=== PATIENT | male | born 1945 | race Caucasian/White ===

== ENCOUNTER 2023-08-01 09:29 | Emergency (ER) | payer MEDICARE, OTHER, SELFPAY ==
[2023-08-01 09:35] VITALS: BP 136/77; PULSE 96; RESP 20; TEMP 36.6; O2SAT 97
--- NOTE | 2023-08-01 09:45 | RT.EKG_ITS ---
APPROVED REPORT Exam: Resting ECG Reason for Exam: cough Patient Location: E HR:78 bpm ECG Measurements Heart Rate 78 AXIS OH 204 P 24 QRSd 78 QRS 33 QT 356 T 15 QTc 405 Conclusion Sinus rhythm, normal axis, normal intervals, no acute ST segment changes.
--- NOTE | 2023-08-01 09:45 | DI.RAD_ITS ---
Exam(s) XR CHEST 2V PA LATERAL EXAM: XR CHEST 2V PA LATERAL CLINICAL HISTORY: cough TECHNIQUE: 2D digital imaging was performed of the chest. Two images were obtained. PA and lateral views were obtained. COMPARISON: CR PORTABLE CHEST ONE VIEW from 09/04/2016 FINDINGS: MEDIASTINUM: Normal. HEART: Normal. PULMONARY VASCULATURE: Normal. LUNGS: There is a 2 cm nodule in the medial aspect of the right upper lobe. This was not present on the prior examination. No focal consolidating infiltrates are seen. PLEURAL SPACE: No pleural effusion or pneumothorax. BONE:Within normal limits for the patient's age. OTHER FINDINGS:Normal. IMPRESSION: 1. 2 cm nodule in the medial aspect of the right upper lobe. This may represent calcified lymph node or pulmonary nodule. CT scan of the chest should be obtained for further evaluation. 2. No focal consolidation in the lung. DATA REPOSITORY: RADIATION DOSE DELIVERED:
[2023-08-01 10:07] VITALS: RESP 20
--- NOTE | 2023-08-01 10:22 | ED.GENADUL_ITS ---
Discharge Plan Disposition Patient Disposition: Home Discharge Details Clinical Impression: COVID-19, Diarrhea Primary Care Provider: [facility] ED Provider: Tamiko Almeida Home Meds and New Rx's Prescriptions: New ondansetron 4 mg tablet,disintegrating 4 mg PO Q6H PRN (Reason: nausea and vomiting) Qty: 30 0RF dicyclomine 10 mg capsule 10 mg PO TID Qty: 30 0RF No Action multivitamin [Daily Vitamin] 1 EACH tablet 1 ea PO DAILY latanoprost [Xalatan] 2.5 ML drops 1 drp Ophthalmic HS ibuprofen [Advil] 200 MG tablet 400 mg PO DAILY PRN Patient Comments: pt states his is taking 800mg ibuprofen tid on bad days.he acetaminophen [Tylenol] 325 MG tablet 650 mg PO PRN PRN methylprednisolone 4 MG tablets,dose pack 4 mg PO DIRECTED Qty: 1 0RF Patient Comments: Pt states not taking - ML 08/01/23 dorzolamide [Trusopt] 10 ML drops 1 drp Ophthalmic TID Patient Comments: uses in each eye brimonidine [Alphagan P] 5 ML drops 1 drp OD BID Discharge Instructions Instructions: COVID-19 (Coronavirus Disease 2019) (ED) Additional Instructions: Your COVID testing today is positive. Please return to the emergency department if you develop more severe symptoms of shortness of breath, cough, persistent fevers. Please increase your water intake or other electrolyte drinks. Take medications prescribed as needed for nausea and abdominal cramping. Medical Decision Making Emergent evaluation of body aches and diarrhea. Initial differential includes viral illness, COVID, dehydration, colitis. Patient is hemodynamically stable. He is afebrile. Will test for COVID, give IV fluids given his poor oral intake and excessive diarrhea. Will check labs including electrolytes to evaluate for derangement. 1050 Labs reviewed. CBC unremarkable. COVID testing is positive. However the patient has had symptoms for 5 days and would be outside the window for Paxlovid. 1130 patient symptoms have improved after medication and IV fluids. Chest x-ray reviewed and independently interpreted by me, no acute focal consolidation, no pleural effusions or pulmonary edema. No indication for antibiotic therapy. discussed treatment plan with patient. Indication for hospitalization at this time. Her strict return precautions advised. We will treat symptomatically at home. Return precautions advised. Discharged in good condition. Medical Records Medical records reviewed: Yes I reviewed the patient's medical records. Imaging Data Radiologic Study: Attestation: I personally reviewed and interpreted this imaging study as follows: Imaging: X-Ray My impression: No focal consolidation, normal heart size, no pulmonary edema or pleural effusion Lab Data Lab results reviewed: Yes I reviewed the patient's lab results. ECG Data Attestation: I personally reviewed and interpreted this ECG (s) as follows: (Sinus 78, normal axis, no acute ST segment changes) HPI General Date/Time Provider Initiated Documentation: 08/01/23 09:41 . HPI Narrative: 78-year-old gentleman without significant past medical history presents for evaluation of 5 days of body aches. Symptoms associated with sore throat, nasal congestion, ear fullness. Last night he started having diarrhea. Diarrhea is watery. is concerned there is blood present. He is having large-volume diarrhea every 30 minutes. Associated with some abdominal cramping. no fever. Patient reports severe body aches. Related Data Home Medications Medication Instructions Recorded Confirmed ibuprofen 200 mg tablet (Advil) 400 mg PO DAILY PRN 05/12/14 08/01/23 latanoprost 0.005 % eye drops 1 drp ophthalmic (eye) HS 05/12/14 08/01/23 (Xalatan) multivitamin (Daily Vitamin tablet) 1 ea PO DAILY 11/12/14 08/01/23 acetaminophen 325 mg tablet 650 mg PO PRN PRN 07/11/16 08/01/23 (Tylenol) methylprednisolone 4 mg tablets in 4 mg PO DIRECTED #1 packet 07/11/16 09/04/16 a dose pack brimonidine 0.1 % eye drops 1 drp OD BID 09/04/16 08/01/23 (Alphagan P) dorzolamide 2 % eye drops (Trusopt) 1 drp ophthalmic (eye) TID 09/04/16 08/01/23 dicyclomine 10 mg capsule 10 mg PO TID ABDOMINAL CRAMPING 08/01/23 #30 caps ondansetron 4 mg disintegrating 4 mg PO Q6H PRN nausea and 08/01/23 tablet vomiting #30 tabs Previous Rx's Medication Instructions Recorded methylprednisolone 4 mg tablets in 4 mg PO DIRECTED #1 packet 07/11/16 a dose pack dicyclomine 10 mg capsule 10 mg PO TID ABDOMINAL CRAMPING 08/01/23 #30 caps ondansetron 4 mg disintegrating 4 mg PO Q6H PRN nausea and 08/01/23 tablet vomiting #30 tabs Allergies Allergy/AdvReac Type Severity Reaction Status Date / Time No Known Allergies Allergy Unverified 08/01/23 09:39 General Stated Complaint: GenMedical MARICHUY: 3 PFSH All Active Problems (Updated 08/01/23 @ 11:39 by Tamiko Almeida MD) COVID-19 (Acute) Diarrhea (Acute) Social History Smoking/Tobacco Use Status: Former Tobacco Use Smoking risk assessment performed?: Yes Alcohol Intake: current Alcohol Intake frequency: 0-2 drinks per day Drug use: Never Substance use type: does not use Housing: house Do you feel safe in your relationship?: Yes Exam Narrative Exam Narrative: Review of Systems: All systems reviewed & are unremarkable except as noted in HPI and below Exam: Const: Well-nourished, Well-developed, appearing stated age HEENT: NACT / Eyes: PERRL, no conjunctival injection, and symmetrical lids / EARS Atraumatic external nose and ears / MOUTH Moist MM / NECK: Symmetric, trachea midline, No thyromegaly / THROAT oropharynx clear CVS: RRR, No murmurs or gallops. Peripheral pulses 2+ and equal in all extremities. Brisk capillary refill in all extremities. RESP: Unlabored respiratory effort, Clear to auscultation bilaterally. No wheezes rales or rhonchi GI: Soft, Nontender/Nondistended, No hepatosplenomegaly. No guarding or rebound. MSK: Extremities w/o deformity or TTP, No cyanosis or clubbing, full range of motion Skin: Warm, Dry. No rashes or lesions. 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 Sensation grossly intact, no focal neurologic deficits. Psych: (AAO) x3. Appropriate mood and affect Course Vital Signs Vital signs: Vital Signs Temperature 36.6 C 08/01/23 09:35 Pulse 96 H 08/01/23 09:35 Respiratory Rate 20 08/01/23 09:35 Blood Pressure 136/77 08/01/23 09:35 Pulse Oximetry 97 08/01/23 09:35 Temperature 36.6 C 08/01/23 09:35 Temperature Source Temporal Artery Scan 08/01/23 09:35 Pulse 96 H 08/01/23 09:35 Respiratory Rate 20 08/01/23 10:07 Respiratory Effort Normal, Non-Labored 08/01/23 10:07 Respiratory Depth Normal 08/01/23 10:07 Respiratory Pattern Normal 08/01/23 10:07 Blood Pressure 136/77 08/01/23 09:35 Blood Pressure Position Sitting 08/01/23 09:35 Pulse Oximetry 97 08/01/23 09:35 Oxygen Delivery Method Room Air 08/01/23 09:35 Oxygen Flow Rate 0 08/01/23 09:35 PAWSS Have you Been Recently Intoxicated or Drunk Within the Last 30 days?: No Have you Ever Experienced Previous Episodes of Alcohol Withdrawal?: No Have you ever Experienced Withdrawal Seizures?: No Have you ever Experienced Delirium Tremens(DT)s?: No Have you ever undergone Alcohol Rehabilitation Treatment (i.e, inpt ot outpatient treatment programs)?: No Have you ever Experienced Blackouts?: No Have you ever Combined Alcohol with other Downers within the last 90 days?: No Have you ever Combined Alcohol with any other Substance of Abuse during the last 90 days?: No Positive Blood Alcohol level on Presentation? [PCS.BAL]: No Evidence of Increased Autonomic Activity (i.e. HR>120, tremor, sweating, agitation, nausea)?: No Result: 0
[2023-08-01] MEDS: Normal Saline 1,000 ML 1000 ML IV (10:31)
[2023-08-01 10:36] LABS: Abs Immature Grans 0.02 10^3/uL (0.0-0.06); Absolute Basophil Count 0.03 10^3/uL (0.0-0.2); Absolute Eosinophil Count 0.01 10^3/uL (0.0-0.7); Absolute Lymphocyte Count 1.24 10^3/uL (1.2-3.4); Absolute Monocyte Count 1.09 10^3/uL (0.1-0.8); Absolute Neutrophil Count 4.67 10^3/uL (1.2-6.7); Basophils % 0.4; Eosinophils % 0.1; HGB 15.6 g/dL (13.5-17.5); Immature Grans % 0.3; Lymphocytes % 17.6; MCH 31.3 pg (27.0-33.0); MCHC 34.7 % (32.0-36.0); MCV 90 fL (80-95); MPV 10.5 fL (8.0-11.0); Monocytes % 15.4; Neutrophils % 66.2; Platelet Count 157 10^3/uL (130-400); RBC 4.99 10^6/uL (4.36-5.78); RDW 11.8 % (11.8-14.1); RDW-SD 39.1 fL; WBC 7.06 10^3/uL (4.4-10.8)
[2023-08-01] MEDS: Ketorolac 15 MG/ML VIAL IVP (10:39)
[2023-08-01] MEDS: Acetaminophen 500 MG TAB 1000 MG PO (10:39)
[2023-08-01 10:50] LABS: ALT 20 U/L (16-63); AST 18 U/L (15-37); Albumin 3.9 g/dL (3.4-5.0); Alkaline Phosphatase 77 U/L (46-116); Anion Gap 9.9 mmol/L (3-11); BUN 15 mg/dL (7-18); Bilirubin, Total 0.6 mg/dL (0.2-1.0); CO2 25.1 mmol/L (21.0-32.0); CREATININE 1.1 mg/dL (0.70-1.30); Calcium 9.3 mg/dL (8.5-10.1); Chloride 102 mmol/L (98-107); Estimated GFR 69.57 (mL/min/1.73m2); Glucose 120 mg/dL (74-106); Magnesium 1.9 mg/dL (1.8-2.4); Sodium 137 mmol/L (136-145); Total Protein 8.1 g/dL (6.4-8.2)
[2023-08-01 11:54] VITALS: BP 125/69; PULSE 64; RESP 14; TEMP 37; O2SAT 96
== END 2023-08-01 11:55 | disposition home or self-care (01) ==
PROVIDERS: Emergency Provider Emergency Medicine
DX: U07.1 COVID-19 (principal); R19.7 Diarrhea, unspecified
CPT/HCPCS: 80053; 87426; 93005; 96361; 96374; 99284; 71046; 83735; 85025; 93010; J1885